=== PATIENT | female | born 1985 | race African-American/Black ===

== ENCOUNTER 2017-06-20 14:11 | Emergency (ER) | payer OTHER ==
--- NOTE | 2017-06-20 15:28 | RAD ---
LUMBAR SPINE 3 VIEWS: Date: 06/20/17 HISTORY: Back pain. COMPARISON: 05/26/16. FINDINGS: There is a transitional vertebra which will be labeled L5 to follow the convention used previously. T he non-rib bearing T12 vertebra has pseudo-ribs which were described previously. This leaves five lum bar vertebra and are numbered accordingly corresponding to the previous exam. The lumbar vertebra maintain height and alignment. There is loss of disc space at L5-S1. 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 Curvature to the left in the mid lumbar spine is more prominent on the prior study noted in the AP pr ojection. This may be positional. Minimal osteophytes from the lumbar vertebra. 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 There are mild degener ative changes as described. No significant interval change. POS: [facility]
[2017-06-20] MEDS ORDERED: Ketorolac Tromethamine 30 MG/ML VIAL ONE (15:41)
== END 2017-06-20 16:03 | disposition home or self-care (01) ==
LOC: ERS 14:11
DX: G89.29 Other chronic pain (principal); M54.5 Low back pain; F17.210 Nicotine dependence, cigarettes, uncomplicated
CPT/HCPCS: 72100; 96372; J1885